=== PATIENT | female | born 1965 | race African-American/Black ===

== ENCOUNTER 2025-07-19 16:30 | Emergency (ER) | payer MEDICAID ==
[2025-07-19] MEDS ORDERED: HYDROmorphone 0.5 MG/0.5 ML SYRINGE ONE ×2 (18:09→19:52)
[2025-07-19 18:39] LABS: Hematocrit 18.2 % (34.9-44.5); Hemoglobin 6.5 g/dL (12.0-15.5); Mean Corpuscular Hemoglobin 32.7 pg (27.0-33.0); Mean Corpuscular Volume 91.5 fL (81.6-98.3); Platelet Count 244 10x3/uL (150-450); Red Blood Cell (RBC) Count 1.99 10x6/uL (3.90-5.03); White Blood Cell (WBC) Count 17.86 10x3/uL (3.5-10.5)
[2025-07-19 18:50] LABS: ALT (SGPT) 71 U/L (Less than 34); AST (SGOT) 104 U/L (11-34); Albumin 3.8 g/dL (3.1-4.5); Alkaline Phosphatase 141 U/L (40-110); Anion Gap 12 mmol/L (10-20); BUN (Urea Nitrogen) 15 mg/dL (9.8-20.1); Bilirubin, Total 3.2 mg/dL (0.3-1.2); Calc. Creatinine Clearance 0 mL/min (70-130); Calcium 9.1 mg/dL (7.8-10.44); Carbon Dioxide 27 mmol/L (22-29); Chloride 103 mmol/L (98-107); Globulin 4.0 g/dL (2.4-3.5); Glucose 180 mg/dL (70-105); Potassium 4.0 mmol/L (3.5-5.1); Sodium 138 mmol/L (136-145)
[2025-07-19 18:53] LABS: Troponin I Less than 0.010 ng/mL (< 0.028)
[2025-07-19 19:20] LABS: Anisocytosis MODERATE=16-30 cells (100X) (0-5/hpf); MDiff Complete? YES; Nucleated RBC (Manual Ct) 1 % (0); Platelet Adequacy Comment Appears Adequate; Polychromasia SLIGHT = 2-3 cells (100X) (0-2/hpf); Schistocytes SLIGHT = 2-5 cells (100X) (0-1/hpf)
[2025-07-19] MEDS ORDERED: Ketorolac Tromethamine 30 MG (1 mL) VIAL ONE (19:52)
[2025-07-19] MEDS ORDERED: diphenhydrAMINE 50 MG/ML VIAL ONE (22:27)
[2025-07-19] MEDS ORDERED: Acetaminophen 500 MG TAB ONE (22:27)
== END 2025-07-20 00:03 | disposition short-term general hospital (02) ==
LOC: CSHERS 16:30
DX: D57.00 Hb-SS disease with crisis, unspecified (principal); I11.0 Hypertensive heart disease with heart failure; I50.9 Heart failure, unspecified; E11.9 Type 2 diabetes mellitus without complications; J44.9 Chronic obstructive pulmonary disease, unspecified
CPT/HCPCS: 36415; 36430; 71045; 80053; 84484; 85025; 85046; 86850; 86900; 86901; 86922; 93005; 96374; 96375; 96376; J1171; J1200; J1885